=== PATIENT | female | born 1990 | race Caucasian/White ===

== ENCOUNTER 2018-10-12 12:46 | Outpatient (CLI) | payer OTHER | END 2018-10-12 12:47 | disposition home or self-care (01) | LOC: SC 12:46 | PROVIDERS: ATTEND Internal Medicine Pulmonary Disease | DX: R06.83 Snoring (principal); G47.10 Hypersomnia, unspecified; G47.8 Other sleep disorders | CPT/HCPCS: 99203; 99212 ==

== ENCOUNTER 2018-12-15 19:17 | Outpatient (CLI) | payer OTHER | END 2018-12-15 19:18 | disposition home or self-care (01) | LOC: SC 19:17 | PROVIDERS: ATTEND Internal Medicine Pulmonary Disease | DX: G47.61 Periodic limb movement disorder (principal); R06.83 Snoring | CPT/HCPCS: 95810 ==